=== PATIENT | male | born 1975 | race Caucasian/White ===

== ENCOUNTER 2023-11-10 14:52 | Emergency (ER) | payer BC, SELFPAY | END 2023-11-10 15:57 | disposition home or self-care (01) | LOC: NAV ERS 14:52 | DX: N48.1 Balanitis (principal); E11.9 Type 2 diabetes mellitus without complications; Z79.84 Long term (current) use of oral hypoglycemic drugs | CPT/HCPCS: 87070; 87077; 87186; 87205; 87255; 99283 ==